=== PATIENT | female | born 1990 | race Caucasian/White ===

== ENCOUNTER → 2016-12-02 | Outpatient (CLI) | payer MEDICAID | LOC: HPND 08:51 | DX: O99.212 Obesity complicating pregnancy, second trimester (principal); Z3A.26 26 weeks gestation of pregnancy | CPT/HCPCS: 76811 ==

== ENCOUNTER → 2016-12-28 | Outpatient (CLI) | payer MEDICAID | LOC: HPND 08:00 | DX: O99.212 Obesity complicating pregnancy, second trimester (principal) | CPT/HCPCS: 76816 ==